=== PATIENT | male | born 1980 | race Caucasian/White ===

== ENCOUNTER → 2022-04-24 10:19 | Outpatient (CLI) | payer BC, SELFPAY ==
--- NOTE | ~2022-04-24 | XR_ITS ---
Left foot Technique: AP, oblique, and lateral views were obtained. Clinical History: Pain Findings: No acute fracture or dislocation is seen. There is mild hallux valgus. Joint spaces are pre served without erosive or degenerative change. Soft tissues are unremarkable. Impression: Mild hallux valgus. No fracture or dislocation. Reviewed, dictated and finalized at location . T OPERATIONS MANAGER Impression: Mild hallux valgus. No fracture or dislocation.
== END ==
PROVIDERS: PCP Family Medicine; Visit Provider Physician Assistant
DX: M79.672 Pain in left foot (principal); M20.12 Hallux valgus (acquired), left foot
CPT/HCPCS: 73630

== ENCOUNTER 2022-08-09 04:19 | Day surgery (SDC) | payer BC, SELFPAY ==
[2022-08-02 14:53] VITALS: BMI 26.9
--- NOTE | 2022-08-02 14:55 | SUR.PREOP ---
Report to the Outpatient Waiting Room, entrance under the green pavilion located off [facility], at time __0700 on date _08/09/22 . Planned Procedure Time: _0900 . Time changes happen often and if your time is changed the preop area will call you the afternoon before. - You and your visitor will be asked to self-screen and do not enter if you have any COVID symptoms. - A mask is optional within the hospital at this time. Patients may have clear liquids (water, carbonated beverages, clear teas, apple juice) until 3 hours prior to surgery with a maximum of 20 ounces. - No food from midnight until time of surgery - Infants may have breast milk until 4 hours before surgery, formula 6 hours prior to surgery. - Children will be allowed to drink immediately following surgery. If applicable, please bring a bottle or sippy cup to assist with drinking. Juice, water, soda, and popsicles are readily available. For infants on formula, please bring formula the day of surgery. Pacifiers are allowed. Take the following medications with a SIP of water the morning of surgery: ___n/a DO NOT STOP ANY OF YOUR OTHER PRESCRIPTION MEDICATIONS PRIOR TO SURGERY ?EXCEPT THE FOLLOWING Medications to discontinue per physician multivitamin Date to take last dose___08/06/22 Please no make-up, nail chinese, hairspray, perfume, deodorant, or body powder the day of surgery. No jewelry (including any body piercings) or valuables the day of surgery, leave them at home. Please take a shower or bath the night before, or the morning of, surgery with an antibacterial soap. Wear comfortable, loose fitting clothing. Children are encouraged to wear pajamas. - Jewelry must be removed prior to entering the operating room. Rings and piercings that are not removed may be cut off. - The hospital will not accept responsibility for valuables. - Please leave all valuables, including medications, at home the day of surgery. If you are going home after surgery, a licensed skip load driver must drive you home. - NO public transportation without another adult if you receive anesthesia. - We recommend that an adult stay with you for 24 hours following discharge. - We also recommend that you do not drive, make important decision, drink alcoholic beverages, or take any drugs that were not prescribed by your health care provider for at least 24 hours after your discharge time. For Pediatric surgeries, we recommend two adults accompany the child home. Follow any additional instructions given to you from your surgeon. If you or anyone in your household have experienced Covid symptoms in the past week, please notify your surgeon or the nurse liaison at the phone number below for possible testing. Telephone instructions given to karely pace and asked if any additional questions and then verbalized understanding. Patient advised to call surgeon office or pre surgery nurse liaison [phone] if any additional questions.
--- NOTE | 2022-08-08 14:47 | P.PNAN_ITS ---
Anes - Initial Pre Proc Eval Procedure: Operation Date: 08/09/22 11:30 Proposed Procedures p Arthrodesis First Metatarsophalangeal Joint Left Foot, Lindsay Shortening Second Metatarsal Ostetomy Left Foot - Bassem Magdaleno JR, MD Date/Time: 08/08/22 14:47 Surgeon: Bassem Magdaleno JR, MD Pre Op Diagnosis: arthritic bunion left foot, metarsalgia left foot Patient Data Age: 42 Gender: M Height: 1.91 m Weight: 97.72 kg Allergies Allergy/AdvReac Type Severity Reaction Status Date / Time No Known Allergies Allergy Verified 08/09/22 09:53 Home Medications Medication Instructions Recorded Confirmed Type multivitamin 1 cap PO DAILY 08/02/22 08/02/22 History Patient hx anesthesia problems: none Family hx anesthesia problems: none Results Review: All pre-operative results and documents have been reviewed as part of the pre- operative evaluation. [facility] Past Medical History Medical History (Updated 04/24/22 @ 10:19 by NIRANJAN Choudhury) Vitamin D deficiency Family History Family History (Updated 04/24/22 @ 09:30 by Brittany Patrick MA) Mother Cancer Social History Social History Smoking status: Former smoker Second hand tobacco smoke exposure: No Smoking end date: 03/03/09 Additional smoking assessment comments: smoked 6 years 1/2ppd Alcohol intake: current Drinks per week: 2 Substance use: never Substance use type: does not use Lack of Transportation: No Lack of Food: Never True Current Housing: I Have Housing Concerned About Future Housing: No Difficulty Paying Gas/Electric Bills: No Difficulty Paying for Meds: No Currently Unemployed: No Difficulty w/ Childcare or Family Care: No Living arrangements: with family Occupation/Education: occupation Gender identity (if verbalized by the patient): Male Sexual Orientation (if Verbalized by the Patient): Lesbian, Escobar, or Homosexual Spiritual care concerns: No Anes - Eval Final PreProcedure Day of Procedure 08/08/22 14:47 Patient weight: overweight Heart: regular rate and rhythm Lungs: clear to auscultation and normal air movement Airway: Mallampati scale class II Neurological: alert and oriented Last oral intake: >/= 8 hours ASA classification: I Emergent: no Anesthetic plan: proceed Anesthesia type and monitoring: general GIVS Results Review: All pre-operative results and documents have been reviewed as part of the pre- operative evaluation. Informed Consent: The patient's anesthetic plan and its attendant risks and benefits were discussed with the patient/family/POA. Questions were solicited and answers provided to the satisfaction of the patient/family/POA.
--- NOTE | 2022-08-08 14:49 | WPDANESPNB ---
Anes - Peripheral Nerve Block Date/Time: 08/08/22 14:49 I have discussed with the patient/family/POA the placement of a peripheral nerve block for post-operative pain management, including associated risks, benefits, complications, and side effects. Alternative methods of post-operative analgesia were detailed. Questions were solicited and answers provided to the satisfaction of the patient/family/POA. Time-Out: A pre-procedural Time-Out was completed immediately before starting the procedure and confirmed: Patient Identification, Site, Procedure, Patient Position and the Availability of Requisite Equipment. Clinical Indications: Acute post-operative pain management requested by the operative surgeon. Nerve Block Insertion Note Anes-nerve block: posterior fossa sciatic (20cc) left Patient position: supine Skin prep: chlorhexidine Needle: 22 gauge, stimulating, insulated echogenic needle. Needle length: 80 mm Technique: ultrasound (in plane) Injectate: bupivacaine 0.25% with epi 5 mcg/ml (20cc) Observations: tolerated well Complications: none Procedure start time:: 1115 Procedure end time:: 1120
[2022-08-09] VITALS (8 sets, daily range): BP systolic 111–144; BP diastolic 74–97; PULSE 60–87; RESP 14–17; TEMP 36.2–36.3; O2SAT 98–100
--- NOTE | ~2022-08-09 | XR_ITS ---
XR surgery orthopedic DATE: 08/09/2022 12:26 INDICATION: Left foot shortening fusion osteotomy TECHNIQUE: AP and lateral views of the forefoot 9 seconds total exposure time 0.9111 cGycm2 total DAP COMPARISON: None FINDINGS: Dorsal plate and screws are noted projecting the first metatarsophalangeal area consistent with arthrodesis at the first metatarsophalangeal joint. There are 2 screws overlying the second meta tarsal head and neck. IMPRESSION: First metatarsophalangeal arthrodesis Reviewed, dictated and finalized at Location A. Reviewed, dictated and finalized at location []
--- NOTE | 2022-08-09 07:12 | WPDHPUPDATE1 ---
History and Physical Update Update Date/Time: 08/09/22 07:12 History and Physical has been reviewed, including an updated exam of the patient. There are NO changes in the patient's condition. Risks, benefits, and alternatives have been discussed and questions answered. Patient agrees to proceed with procedure.
[2022-08-09] MEDS: LACTATED RINGERS 1,000 ML 30 ML IV CONT (09:52)
[2022-08-09] MEDS: ceFAZolin 2 GM/D5W 50 ML 2 GM/50 ML BAG IVPB (11:28)
--- NOTE | 2022-08-09 12:54 | W.PM.PROC2 ---
Procedure Note - Detailed Date of Procedure 08/09/22 Pre-op Diagnosis 1. Arthritic bunion left foot 2. Metatarsalgia left foot Post-op Diagnosis Same Procedure Performed 1. Arthrodesis of the first metatarsal phalangeal joint left foot 2. Lindsay shortening second metatarsal osteotomy left foot Surgeon Bassem Magdaleno JR, MARIA EUGENIA Anesthesia General and Regional Indications Painful left forefoot Findings Medial joint degeneration to the first metatarsal phalangeal joint Description of Procedure PROCEDURE IN DETAIL: Under mild sedation, the patient was brought into the operating room, placed on the operating table in supine position. A pneumatic ankle tourniquet was placed about the patient's ipsilateral ankle. Following general anesthesia and a popliteal fossa block, the foot was then scrubbed, prepped, and draped in the usual aseptic manner. An Esmarch bandage was then used to exsanguinate the patient's foot and the pneumatic ankle tourniquet was then inflated. Surgery began in the following manner: Attention was directed to the dorsal medial aspect of the 1st metatarsophalangeal joint where there was a hallux valgus deformity noted with a promienent first metatarsal phalangeal joint dorsal medially. The incision was made starting along the central shaft of the 1st metatarsal and extending just proximal to the interphalangeal joint of the hallux. The incision was continued deep down through the subcutaneous tissues using sharp and blunt dissection. All bleeders were cauterized as necessary. At this point, the dissection was continued down to the level of the periosteum and capsular structures overlying the 1st metatarsophalangeal joint. A full length periosteum and capsular incision was made just medial to the extensor hallucis longus tendon. The periosteum and capsular structures were freed from the base of the proximal phalanx as well as the distal 1st metatarsal. At this point, the 1st metatarsophalangeal joint was identified. There was loss of articular cartilage to the head of the 1st metatarsal, mostly medially as well as the base of the proximal phalanx worse medially. There was broadening and hypertrophy of the 1st metatarsophalangeal joint. Utilizing a sagittal bone saw, the hypertrophied 1st metatarsal was resected dorsally, medially, and laterally. A power bur was used to make sure that there were no rough edges and also to further debride the hypertrophic 1st metatarsal. Next, a rongeur was used to resect the hypertrophic base of the proximal phalanx. At this point, the reamer system for the Qualisteo[employer] system was used to denude the degenerative cartilage from the head of the 1st metatarsal as well as the base of the proximal phalanx. The cartilage and subchondral bone were fully debrided utilizing the reamer system until healthy bleeding bone was noted. I flushed the surgery site with copious amounts of sterile saline. Next, a 2-0 drill bit was used to further fenestrate the head of the 1st metatarsal as well as the base of the proximal phalanx in order to allow fusion across the 1st metatarsophalangeal joint. Next, a 0.045 inch K-wire was driven from the medial aspect of the base of the proximal phalanx into the head of the 1st metatarsal in order to serve as temporary fixation. A large steel plate was used to make sure that the hallux was in a rectus position both in the sagittal plane as well as the frontal and transverse plane. Excellent position of the hallux was noted. Next, a CrossCHECK plate was placed atop the 1st metatarsophalangeal joint held in position with [place] wires. Utilizing standard principles and techniques, the 2 distal drill holes were drilled and two 3.5mm mm fully-threaded locking screws were driven from dorsal to plantar holding the distal aspect of the plate intact. At this point, a 3.5mm lag screw was driven from dorsal distal to proximal plantar across the 1st metatarsophalang
== END 2022-08-09 14:52 | disposition home or self-care (01) ==
PROVIDERS: PCP Family Medicine; Visit Provider Podiatrist Foot & Ankle Surgery
PROC: (CPT 28750; principal; 2022-08-09 11:30)
DX: M21.612 Bunion of left foot (principal); M19.072 Primary osteoarthritis, left ankle and foot; M77.42 Metatarsalgia, left foot; G89.18 Other acute postprocedural pain; Z87.891 Personal history of nicotine dependence
CPT/HCPCS: 28750; 28308; 64445; 99199; C1713; J0690; J1100; J2250; J2405; J2704; J3010; J7120

== ENCOUNTER 2024-10-01 09:34 | Outpatient (CLI) | payer OTHER, SELFPAY ==
--- NOTE | ~2024-10-01 | MR_ITS ---
EXAMINATION: MR shoulder LT wo con DATE: 10/01/2024 10:14 INDICATION: Left shoulder pain and limited range of motion TECHNIQUE: Magnetic resonance imaging (MRI) of the left shoulder was performed without intravenous co ntrast. Sequences included axial PD-weighted FS FSE, coronal oblique PD-weighted FS FSE, coronal obli que T2-weighted FS FSE, sagittal PD-weighted FS FSE, and sagittal T1-weighted SE. COMPARISON: None. FINDINGS: Coracoacromial arch: The acromion undersurface is curved in morphology (type II). The coracoacromial ligament is normal. A cromioclavicular joint is normal. Rotator cuff: Mild supraspinatus tendinopathy without tear. The infraspinatus and teres minor tendons are normal. M ild subscapularis tendinopathy without tear. Normal rotator cuff muscle bulk and signal. Biceps tendon, glenoid labrum and glenohumeral cartilage: Long head of the biceps tendon is normal. There is a reverse Bankart lesion with tear at the base of the labrum beginning at the 10:30 position of the posterior superior glenoid labrum extending inferio rly to the 6:30 position anteriorly. There is severe degeneration with 7 x 5 x 4 mm intra labral gang lion cyst at the 7:30 position posteroinferiorly. Prominent cystic change change along the posterior glenoid deep to the denuded posterior rim of the glenoid extending from the 9:30-7:00 position. There is secondary deep chondral ulceration along the posterior third of the glenoid as well as along the posterior third of the humeral head. Fluid: Moderate-sized glenohumeral joint effusion with mild synovitis at the axillary pouch. There is propor tional extension of a moderate amount fluid as well as tenosynovitis along the long head biceps tendo n sheath. No loose osteochondral bodies. Mild increased fluid signal in the subacromial/subdeltoid bu rsa consistent with minimal bursitis. Bones: There is mild posterior subluxation of the humeral head with respect to the glenoid likely resulting from the labral tear. No fracture. Marrow edema at the left humeral head likely reactive related to t he moderate to severe glenohumeral osteoarthritis. IMPRESSION: 1. Likely chronic tear of the posterior superior to inferior glenoid labrum with moderate to severe s econdary glenohumeral osteoarthritis with posterior predominant deep cartilage loss and prominent sub articular cystlike changes at the posterior glenoid. 2. Mild subscapularis and supraspinatus tendinopathy without discrete tear. 3. Moderate sized likely reactive glenohumeral joint effusion with synovitis which extends into the l kinga head biceps tendon sheath. Reviewed, dictated and finalized at location A. IMPRESSION: 1. Likely chronic tear of the posterior superior to inferior glenoid labrum wit h moderate to severe secondary glenohumeral osteoarthritis with posterior predo minant deep cartilage loss and prominent subarticular cystlike changes at the p osterior glenoid. 2. Mild subscapularis and supraspinatus tendinopathy without discrete tear. 3. Moderate sized likely reactive glenohumeral joint effusion with synovitis wh ich extends into the long head biceps tendon sheath.
--- NOTE | ~2024-10-01 | XR_ITS ---
Left Shoulder Technique: AP and scapular Y views were obtained. Clinical History: Pain Findings: No fracture or dislocation is seen. Osseous alignment is anatomic. The glenohumeral and acr omioclavicular joint spaces are preserved. Soft tissues are unremarkable. Impression: Unremarkable left shoulder radiographs. Reviewed, dictated and finalized at [facility]. Impression: Unremarkable left shoulder radiographs.
== END 2024-10-01 09:35 | disposition home or self-care (01) ==
LOC: GOSHIMG 09:35
PROVIDERS: PCP Orthopaedic Surgery
DX: M75.82 Other shoulder lesions, left shoulder (principal)
CPT/HCPCS: 73030; 73221

== ENCOUNTER 2024-10-22 12:00 | Outpatient (CLI) | payer OTHER, SELFPAY ==
--- NOTE | ~2024-10-22 | XR_ITS ---
XR elbow RT 2V 10/22/2024 12:16 INDICATION: Right elbow pain PROCEDURE: 2 views right elbow COMPARISON: No prior studies for comparison. FINDINGS: Fracture, dislocation or subluxation is not identified. No significant joint effusion. The soft tissues appear within normal limits. No foreign bodies are identified. IMPRESSION: 1: NO ACUTE BONE OR JOINT ABNORMALITY IDENTIFIED. Reviewed, dictated and finalized at location O.
== END 2024-10-22 12:01 | disposition home or self-care (01) ==
PROVIDERS: PCP Orthopaedic Surgery
DX: M25.521 Pain in right elbow (principal)
CPT/HCPCS: 73070

== ENCOUNTER 2024-11-04 13:15 | Outpatient (CLI) | payer OTHER, SELFPAY ==
--- NOTE | ~2024-11-04 | MR_ITS ---
EXAMINATION: MR elbow RT wo con DATE: 11/04/2024 14:20 INDICATION: Right elbow pain TECHNIQUE: Magnetic resonance imaging (MRI) of the right elbow was performed without intravenous contrast. Sequences included coronal, axial, and sagittal PD-weighted FS FSE and coronal, axial, and sagittal PD-weighted FSE. COMPARISON: None FINDINGS: Osseous/other: Normal alignment. Normal marrow signal with no marrow edema, fracture, osteochondral lesion or abnormal marrow replacing process. Tendons: Triceps, biceps brachii and brachialis tendons are normal. Common flexor tendon wad is normal. The common extensor tendon wad is normal. Ligaments: The medial and lateral collateral ligament complexes are normal. Cubital tunnel: Normal anatomic variant anconeus epitrochlearis muscle. The cubital tunnel is otherwise unremarkable with no other impinging lesions. Normal signal and caliber of the ulnar nerve. Fluid: Physiologic amount of fluid the elbow joint. IMPRESSION: 1. Normal anatomic variant anconeus epitrochlearis muscle overlying the cubital tunnel and the normal-appearing ulnar nerve. Otherwise unremarkable right elbow MRI. Reviewed, dictated and finalized at location A. IMPRESSION: 1. Normal anatomic variant anconeus epitrochlearis muscle overlying the cubital tunnel and the normal-appearing ulnar nerve. Otherwise unremarkable right elbo w MRI.
== END 2024-11-04 13:16 | disposition home or self-care (01) ==
LOC: GOSHIMG 13:15
PROVIDERS: PCP Orthopaedic Surgery
DX: M79.621 Pain in right upper arm (principal)
CPT/HCPCS: 73221